=== PATIENT | female | born 1995 | race Caucasian/White ===

== ENCOUNTER 2016-03-19 18:45 | Emergency (ER) | payer OTHER ==
[2016-03-19] MEDS ORDERED: Albuterol HFA INHALER* 8 gm MDI INH ONE (19:08)
--- NOTE | 2016-03-19 19:15 | UC ---
Throat Pain/Nasal Bam HPI - HPI Summary HPI Summary: patient is 30 weeks , she has had a fever, although is currently a febrile. c/o of right ear paina nd sore throat and cough. - History of Current Complaint Chief Complaint: UCRespiratory Stated Complaint: throat,right ear complaint Time Seen by Provider: 03/19/16 18:53 Hx Obtained From: Patient Hx Last Menstrual Period: 10/06/14 ?: Yes Onset/Duration: Gradual Onset, Lasting Weeks Severity: Moderate Pain Intensity: 6 Pain Scale Used: 0-10 Numeric Cough: Productive Associated Signs & Symptoms: Positive: Dysphagia, Sinus Discomfort, Nasal Discharge, Fever - Epiglottits Risk Factors Epiglottis Risk Factors: Negative - Allergies/Home Medications Allergies/Adverse Reactions: Allergies Allergy/AdvReac Type Severity Reaction Status Date / Time Amoxicillin Allergy Intermediate Hives Verified 03/19/16 19:02 Penicillins Allergy Intermediate Hives Verified 03/19/16 19:02 Home Medications: Home Medications Acetaminophen [Acetaminophen Extra Stren] 1,000 mg PO Q4HR PRN 03/19/16 [ History Confirmed 03/19/16] Vitamin B Complex TAB* [Complex B-100*] 1 tab PO DAILY 03/19/16 [History Confirmed 03/19/16] PMH/Surg Hx/FS Hx/Imm Hx Previously Healthy: Yes Endocrine History Of: Denies: Diabetes, Thyroid Disease Cardiovascular History Of: Denies: Cardiac Disorders, Hypertension, Congestive Heart Failure Respiratory History Of: Reports: Asthma Denies: COPD GI/ History Of: Denies: Ulcer, Renal Disease Psychological History Of: Reports: Depression - hx of [facility] admission, Bipolar Disorder Denies: Anxiety, Schizophrenia - Surgical History Surgical History: None Surgery Procedure, Year, and Place: RT ARM CONTROL IMPLANT - Family History Known Family History: Positive: Hypertension - Social History Alcohol Use: None Substance Use Type: None Smoking Status (MU): Former Smoker Amount Used/How Often: 1 ppd Length of Time of Smoking/Using Tobacco: started at age 9 Have You Smoked in the Last Year: No When Did the Patient Quit Smoking/Using Tobacco: 2011 Household Exposure Type: Cigarettes - Immunization History Most Recent Influenza Vaccination: November 2014 Most Recent Tetanus Shot: 2011 Most Recent Pneumonia Vaccination: never Review of Systems Constitutional: Fever Skin: Negative ENT: Sore Throat Respiratory: Cough Cardiovascular: Negative Gastrointestinal: Negative Genitourinary: Negative Motor: Negative Neurovascular: Negative Musculoskeletal: Arthralgia Neurological: Negative Psychological: Negative All Other Systems Reviewed And Are Negative: Yes Physical Exam Triage Information Reviewed: Yes Appearance: No Pain Distress, Well-Nourished, Ill-Appearing Vital Signs: Initial Vital Signs Temp 98 F 03/19/16 18:55 Pulse 98 03/19/16 18:55 Resp 16 03/19/16 18:55 BP 109/81 03/19/16 18:55 Pulse Ox 98 03/19/16 18:55 Vital Signs Reviewed: Yes Eye Exam: Normal Eyes: Positive: Conjunctiva Clear ENT: Positive: Hearing grossly normal, Pharyngeal erythema, TMs normal Dental Exam: Normal Neck exam: Normal Neck: Positive: Supple, Nontender, No Lymphadenopathy Respiratory Exam: Normal Respiratory: Positive: Chest non-tender, No respiratory distress, No accessory muscle use, Wheezing, Inspiration Cardiovascular Exam: Normal Cardiovascular: Positive: RRR, No Murmur, Pulses Normal Abdominal Exam: Normal Abdomen Description: Positive: Nontender, No Organomegaly, Soft Bowel Sounds: Positive: Present Musculoskeletal Exam: Normal Musculoskeletal: Positive: Strength Intact, ROM Intact, No Edema Neurological Exam: Normal Neurological: Positive: Alert, Muscle Tone Normal Psychological Exam: Normal Skin Exam: Normal Throat Pain/Nasal Course/Dx - Course Course Of Treatment: hx obtained, exam performed, ears are clear, pearly Kong TM , throat slightly erythemic. does have some inspiratory wheezing. will give an albuterol refill as she states she is out. she is afebrile. will treat for viral pharyngitis - Differential Dx/Diagnosis Differential Diagnosis/HQI/PQRI: Influenza, Laryngitis, Otitis Media, Pharyngitis, Sinusitis, Tonsillitis, URI Provider Diagnoses: pharynigitis Discharge - Discharge Plan Condition: Stable Disposition: HOME Patient Education Materials: Pharyngitis (ED) Additional Instructions: Use the ventolin every 4 hours as needed for SOB or COUGH. is a tough time to be sick. I believe your illness is viral, your ears show no sign of infection. I recommend using tylenol 100 mg every 6 hours, do not exceed more than 4000 mg daily. do not use advil ( ibuprofen) while . Increase your clear fluid intake to stay hydrated. it is hard to stay hydrated while so increase your fluid intake is very important to help keep the sinuses moving. Get plenty of rest.
[2016-03-19 19:31] VITALS: BP 109/81
== END 2016-03-19 19:33 | disposition home or self-care (01) ==
LOC: UCCORT 18:45
DX: J02.9 Acute pharyngitis, unspecified (principal); O99.513 Diseases of the respiratory system complicating pregnancy, third trimester; Z87.891 Personal history of nicotine dependence; Z88.0 Allergy status to penicillin; Z88.1 Allergy status to other antibiotic agents; Z3A.30 30 weeks gestation of pregnancy
CPT/HCPCS: 99212; A9270-GY; G0463

== ENCOUNTER 2016-09-28 13:36 | Emergency (ER) | payer OTHER ==
[2016-09-28 14:07] VITALS: BP 104/69
[2016-09-28] MEDS ORDERED: Acetaminophen TAB* 325 MG PO ONE (14:12)
[2016-09-28] MEDS ORDERED: Dexamethasone IV* 4 MG/ML 1 ML (4 MG) IM ONE (14:13)
--- NOTE | 2016-09-28 14:17 | UC ---
Throat Pain/Nasal Bam HPI - HPI Summary HPI Summary: Congestion for a few days which has led to sore throat for three days. no cough and no fever. - History of Current Complaint Chief Complaint: UCRespiratory Stated Complaint: SORE THROAT CONGESTION Time Seen by Provider: 09/28/16 14:09 Hx Obtained From: Patient Hx Last Menstrual Period: prior to Onset/Duration: Gradual Onset, Lasting Days Severity: Severe Cough: None Associated Signs & Symptoms: Positive: Dysphagia, Nasal Discharge. Negative: FB Sensation, Drooling, Wheezing, Hoarseness, Sinus Discomfort, Fever, Vomiting , Rash - Allergies/Home Medications Allergies/Adverse Reactions: Allergies Allergy/AdvReac Type Severity Reaction Status Date / Time Amoxicillin Allergy Intermediate Anaphylatic Verified 09/28/16 13:59 Shock Penicillins Allergy Intermediate Dry Eyes Verified 09/28/16 13:59 Home Medications: Home Medications Acetaminophen [Tylenol] 325 mg PO Q4H PRN 09/28/16 [History Confirmed 09/28/16] Etonogestrel [Nexplanon] 68 mg IMPLANT ONCE 09/28/16 [History Confirmed 09/28/16 ] Aozyxuhsyfjaz-Bvjuanhgvw-Ejydy [Daytime/Nite Time Cold/Fl] 2 cap PO DAILY PRN [History Confirmed 09/28/16] Pseudoephedrine HCL ER TAB* [Sudafed 12 Hour*] 120 mg PO BID PRN 09/28/16 [ History Confirmed 09/28/16] PMH/Surg Hx/FS Hx/Imm Hx Previously Healthy: Yes - No DM. - Surgical History Surgical History: None Surgery Procedure, Year, and Place: RT ARM CONTROL IMPLANT - Family History Known Family History: Positive: None, Hypertension Family History: NON CONTRIBUTORY - Social History Lives: With Family Alcohol Use: None Substance Use Type: None Smoking Status (MU): Former Smoker Amount Used/How Often: 1 ppd Length of Time of Smoking/Using Tobacco: started at age 9 Have You Smoked in the Last Year: No When Did the Patient Quit Smoking/Using Tobacco: 2014 Household Exposure Type: Cigarettes - Immunization History Most Recent Influenza Vaccination: November 2014 Most Recent Tetanus Shot: 2011 Most Recent Pneumonia Vaccination: never Review of Systems ENT: Sore Throat All Other Systems Reviewed And Are Negative: Yes Physical Exam Triage Information Reviewed: Yes Appearance: Well-Appearing, No Pain Distress, Well-Nourished Vital Signs: Initial Vital Signs Temp 98.4 F 09/28/16 14:02 Pulse 84 09/28/16 14:02 Resp 16 09/28/16 14:02 BP 104/69 09/28/16 14:02 Pulse Ox 100 09/28/16 14:02 Vital Signs Reviewed: Yes Eye Exam: Normal ENT: Positive: Pharyngeal erythema - ailyn symmetric tonsillar hypertrophy/ enlargment without exudate., TMs normal. Negative: Nasal congestion, TM bulging , TM dull, TM red, Tonsillar swelling, Tonsillar exudate, Trismus Neck exam: Normal Neck: Positive: Tenderness @ - ailyn submandibular. Respiratory Exam: Normal Cardiovascular Exam: Normal Abdominal Exam: Normal Musculoskeletal Exam: Normal Neurological Exam: Normal Psychological Exam: Normal Skin Exam: Normal Throat Pain/Nasal Course/Dx - Course Assessment/Plan: Sore throat. Strep pending. she is non toxic. - Differential Dx/Diagnosis Differential Diagnosis/HQI/PQRI: Epiglottitis, Vipin's Angina, Mononucleosis, Otitis Media, Peritonsillar Abscess, Pharyngitis, Tonsillitis, URI Provider Diagnoses: URI. Discharge - Discharge Plan Condition: Good Disposition: HOME Prescriptions: Methylprednisolone [Medrol Dosepak 4 MG*] 4 mg PO .SEE ROVERTO INSTRUCTION #21 tab Naproxen [Naprosyn 500 mg] 500 mg PO BID PRN #20 tab PRN Reason: Pain Patient Education Materials: Upper Respiratory Infection (ED) Referrals: Sammi Brizuela, SUB ACUTE CARE NURSE [Primary Care Provider] -
== END 2016-09-28 15:04 | disposition home or self-care (01) ==
LOC: UCCORT 13:36
DX: J06.9 Acute upper respiratory infection, unspecified (principal); Z87.891 Personal history of nicotine dependence
CPT/HCPCS: 87651; 96372; 99212; A9270-GY; G0463; J1100

== ENCOUNTER → 2016-12-09 16:38 | Emergency (ER) | payer OTHER ==
[~2016-12-09 16:38] MED LIST: Famotidine IV* 10 MG/ML 2 ML (20 mg) IV SLOW PU ONE; Famotidine IV* 10 MG/ML 2 ML (20 mg) ONE; NS 0.9% 1000 ML* 1,000 ML IV ONE; Ondansetron INJ* 2 MG/ML VIAL IV ONE; Ondansetron INJ* 2 MG/ML VIAL ONE; diPHENhydraMINE IV* 50 MG in NS 0.9% 50 ML* 50 ML IVPB ONE; diPHENhydraMINE IV* 50 MG/ML 1 ml VIAL (BENADRYL) ONE; methylPREDNISolone 125 MG* 2 ML VIAL IV ONE; methylPREDNISolone 125 MG* 2 ML VIAL ONE
--- NOTE | 2016-12-09 17:02 | ED ---
Rishi Coleman Alfonso, scribed for Chikis Schaeffer MD on 12/09/16 at 1646 . Allergic Reaction/Systemic - HPI Summary HPI Summary: This patient is a 21 year old F presenting to [facility] with a chief complaint of an allergic reaction since approximately 1920. She was stung by bees on her right foot. Pt with develop of hives, flushing. Pt denies difficulty swallowing , breathing. No intraoral edema. Pt without pain. No h/o similar. Symptoms alleviated by nothing. Patient reports diffuse erythema and nausea. Pt denies taking any med [employer] Patients medication reviewed this visit. - History of Current Complaint Chief Complaint: EDAllergicReaction Time Seen by Provider: 12/09/16 16:45 Hx Obtained From: Patient Onset/Duration: Sudden Onset, Started minutes ago, Still Present Timing: Constant Location: Diffuse Character: Hives Alleviating Factor(s): Nothing Associated Signs And Symptoms: Positive: Other: - diffuse erythema and nausea. Patient denies SOB. - Allergies/Home Medications Allergies/Adverse Reactions: Allergies Allergy/AdvReac Type Severity Reaction Status Date / Time Amoxicillin Allergy Intermediate Anaphylatic Verified 09/28/16 13:59 Shock Penicillins Allergy Intermediate Dry Eyes Verified 09/28/16 13:59 PMH/Surg Hx/FS Hx/Imm Hx Previously Healthy: Yes Endocrine/Hematology History: Denies: Hx Diabetes, Hx Thyroid Disease Cardiovascular History: Denies: Hx Congestive Heart Failure, Hx Hypertension Respiratory History: Reports: Hx Asthma Denies: Hx Chronic Obstructive Pulmonary Disease (COPD) GI History: Denies: Hx Ulcer History: Denies: Hx Renal Disease Neurological History: Denies: Other Neuro Impairments/Disorders Psychiatric History: Reports: Hx Attention Deficit Hyperactivity Disorder, Hx Depression - hx of [facility] admission, Hx Inpatient Treatment, Hx Community Mental Health Tx, Hx Bipolar Disorder, Hx Suicide Attempt, Other Psychiatric Issues/ Disorders - borderline intellectual functioning, learning disability Denies: Hx Anxiety, Hx Eating Disorder, Hx Panic Disorder, Hx Post Traumatic Stress Disorder, Hx Schizophrenia, Hx of Violent Episodes Against Others, Hx Substance Abuse - Surgical History Surgery Procedure, Year, and Place: RT ARM CONTROL IMPLANT - Immunization History Date of Tetanus Vaccine: unknow Infectious Disease History: Denies: Hx Hepatitis, Hx Human Immunodeficiency Virus (HIV), History Other Infectious Disease - Family History Known Family History: Positive: Hypertension - Social History Alcohol Use: None Substance Use Type: Reports: None Smoking Status (MU): Former Smoker Amount Used/How Often: 1 ppd Length of Time of Smoking/Using Tobacco: started at age 9 Have You Smoked in the Last Year: No Review of Systems Positive: Other - allergic reaction Positive: Nausea Positive: Other - diffuse erythema All Other Systems Reviewed And Are Negative: Yes Physical Exam Triage Information Reviewed: Yes Vital Signs Reviewed: Yes Appearance: Positive: Well-Nourished, Pain Distress Skin: Positive: Other - Pt with flushing, hives difuse Head/Face: Positive: Normal Head/Face Inspection Eyes: Positive: Normal, EOMI ENT: Positive: Pharynx normal, TMs normal, Other - No intraoral edema Neck: Positive: Supple, Nontender Respiratory/Lung Sounds: Positive: Clear to Auscultation, Breath Sounds Present , Decreased Breath Sounds Cardiovascular: Positive: Normal, RRR, Pulses are Symmetrical in both Upper and Lower Extremities Abdomen Description: Positive: Nontender, No Organomegaly, Soft Bowel Sounds: Positive: Present Musculoskeletal: Positive: Normal, Strength/ROM Intact Neurological: Positive: Normal, Sensory/Motor Intact, Alert, Oriented to Person Place, Time Psychiatric: Positive: Normal - Yelena Coma Scale Best Eye Response: 4 - Spontaneous Best Motor Response: 6 - Obeys Commands Best Verbal Response: 4 - Confused Re-Evaluation - Re-Evaluation First Eval Re-Evaluation Time: 18:05 Change: Improved Comment: Patient is feeling much better. She now reports taking benadryl 50 mg [employer]. Will continue to monitor. Anticipate discharge home. d/w pt pepcid, pred , benadryl. will give epi pen. Pt in agreement with plan Allergic Reaction Course/Dx - Course Assessment/Plan: Pt with diffuse hives and erythema s/p bee sting. No intraoral edema, difficulty with breathing. Will give benadryl, pepcid, pred. tele. close reassessment - Diagnoses Provider Diagnoses: Allergic reaction Discharge - Discharge Plan Condition: Stable Disposition: HOME Prescriptions: Epinephrine [Epipen 2-Brenden] 0.3 mg IM ONCE PRN #1 inj PRN Reason: Hives Famotidine TAB* [Pepcid 20 MG TAB*] 20 mg PO BID #14 tab predniSONE TAB* [Deltasone TAB*] 50 mg PO DAILY #4 tab Patient Education Materials: General Allergic Reaction (ED) Referrals: Non Staff,Doctor [Primary Care Provider] - Additional Instructions: - Take prednisone exactly as prescribed until gone - starting today - Okay to take Benadryl (1-2 tablets) every 6 hours as needed. This medication may cause drowsiness - do NOT drive, operate machinery or drink alcohol while taking Benadryl -Take pepcid as prescribed - 2 times daily for 7 days -Avoid getting over heated (hot showers, hot tubs, exercise) for at least 48 hours - Try to avoid aspirin, NSAIDs (Motrin, Aleve, Naprosyn) for 2-3 days - Okay to apply cool compresses to the area of injury - Fill your epi pen - learn how to use it and keep with you at all times -Contact your doctor or return here with questions or concerns The documentation as recorded by the Rishi ribera Alfonso accurately reflects the service I personally performed and the decisions made by me, Chikis Schaeffer MD.
[2016-12-09 19:08] VITALS: BP 115/68
== END | disposition home or self-care (01) ==
LOC: ED 16:38
DX: T78.40XA Allergy, unspecified, initial encounter (principal); R11.0 Nausea; Z87.891 Personal history of nicotine dependence; L50.9 Urticaria, unspecified; X58.XXXA Exposure to other specified factors, initial encounter
CPT/HCPCS: 96374; 99284; J1200; J2405; J2930

== ENCOUNTER 2016-12-11 19:13 | Emergency (ER) | payer OTHER ==
[2016-12-11 19:21] VITALS: BP 115/80
--- NOTE | 2016-12-11 19:30 | UC ---
Cardiac HPI - HPI Summary HPI Summary: C/O chest tightness for a couple seconds. Better with a deep breath. - History of Current Complaint Chief Complaint: UCGeneralIllness Stated Complaint: SOB,CHEST PAIN Time Seen by Provider: 12/11/16 19:24 Hx Obtained From: Patient Hx Last Menstrual Period: prior to Onset/Duration: Sudden Onset Timing: Intermittent Episodes Lasting: - a few seconds. Initial Severity: Mild Current Severity: None Chest Pain Location: Upper Sternal Character: Tightness Alleviating Factor(s): Spontaneous Resolution - with deep breaths Associated Signs & Symptoms: Positive: SOB - with the chest pain. - Allergy/Home Medications Allergies/Adverse Reactions: Allergies Allergy/AdvReac Type Severity Reaction Status Date / Time Amoxicillin Allergy Intermediate Anaphylatic Verified 12/11/16 19:21 Shock Penicillins Allergy Intermediate Dry Eyes Verified 12/11/16 19:21 Bee Venom Allergy Difficulty Verified 12/11/16 19:21 Breathing PMH/Surg Hx/FS Hx/Imm Hx Respiratory History: Asthma - as a child - Surgical History Surgical History: None Surgery Procedure, Year, and Place: RT ARM CONTROL IMPLANT - Family History Known Family History: Positive: Cardiac Disease, Hypertension, Diabetes Family History: NON CONTRIBUTORY - Social History Occupation: Unemployed - stay at home mom Lives: With Family Alcohol Use: None Substance Use Type: None Smoking Status (MU): Former Smoker Amount Used/How Often: 1 ppd Length of Time of Smoking/Using Tobacco: started at age 9 Have You Smoked in the Last Year: No When Did the Patient Quit Smoking/Using Tobacco: 2014 Household Exposure Type: Cigarettes - Immunization History Most Recent Influenza Vaccination: November 2014 Most Recent Tetanus Shot: 2011 Most Recent Pneumonia Vaccination: never Review of Systems Respiratory: Shortness Of Breath Cardiovascular: Chest Pain Is Patient Immunocompromised?: No All Other Systems Reviewed And Are Negative: Yes Physical Exam Triage Information Reviewed: Yes Appearance: Well-Appearing, No Pain Distress, Well-Nourished Vital Signs: Initial Vital Signs Temp 99.0 F 12/11/16 19:17 Pulse 113 12/11/16 19:17 Resp 20 12/11/16 19:17 BP 115/80 12/11/16 19:17 Pulse Ox 100 12/11/16 19:17 Vital Signs Reviewed: Yes Eyes: Positive: Conjunctiva Clear ENT: Positive: Pharynx normal, TMs normal Neck exam: Normal Respiratory Exam: Normal Cardiovascular Exam: Normal Cardiovascular: Positive: Murmur:Sys:Grade _?_/ - 2/6 benign murmur Musculoskeletal Exam: Normal Neurological Exam: Normal Psychological Exam: Normal Skin Exam: Normal - Differential Diagnoses - Chest Pain Differential Diagnosis/HQI/PQRI: Chest Wall, GI Disease, Lower Respiratory Infection - Clinical Impression Provider Diagnoses: Chest pain, non-specific Discharge - Discharge Plan Condition: Stable Disposition: HOME Patient Education Materials: Noncardiac Chest Pain (ED)
== END 2016-12-11 19:43 | disposition home or self-care (01) ==
LOC: UCCORT 19:13
DX: R07.9 Chest pain, unspecified (principal); Z88.1 Allergy status to other antibiotic agents; Z88.0 Allergy status to penicillin; Z91.030 Bee allergy status; Z87.891 Personal history of nicotine dependence
CPT/HCPCS: 99211; G0463

== ENCOUNTER 2017-02-01 21:26 | Emergency (ER) | payer OTHER ==
[2017-02-01 21:38] VITALS: BP 112/76
--- NOTE | 2017-02-13 20:07 | UC ---
Cardiac HPI - HPI Summary HPI Summary: 21 year old female presents with right chest pain with dizzines - History of Current Complaint Chief Complaint: UCGU Stated Complaint: RIGHT SIDE CHEST PAIN Time Seen by Provider: 02/01/17 21:40 Hx Obtained From: Patient Hx Last Menstrual Period: Implanon Onset/Duration: Sudden Onset Timing: Constant Initial Severity: Severe Current Severity: Severe Pain Intensity: 0 Chest Pain Location: Right Anterior Aggravating Factor(s): Exertion - Allergy/Home Medications Allergies/Adverse Reactions: Allergies Allergy/AdvReac Type Severity Reaction Status Date / Time Amoxicillin Allergy Intermediate Anaphylatic Verified 02/01/17 21:33 Shock Penicillins Allergy Intermediate Dry Eyes Verified 02/01/17 21:33 Bee Venom Allergy Difficulty Verified 02/01/17 21:33 Breathing PMH/Surg Hx/FS Hx/Imm Hx - Surgical History Surgical History: None Surgery Procedure, Year, and Place: RT ARM CONTROL IMPLANT - Family History Known Family History: Positive: Cardiac Disease, Hypertension, Diabetes Family History: NON CONTRIBUTORY - Social History Alcohol Use: None Substance Use Type: None Smoking Status (MU): Former Smoker Amount Used/How Often: 1 ppd Length of Time of Smoking/Using Tobacco: started at age 9 Have You Smoked in the Last Year: No When Did the Patient Quit Smoking/Using Tobacco: 2015 Household Exposure Type: Cigarettes - Immunization History Most Recent Influenza Vaccination: no Most Recent Tetanus Shot: 2011 Most Recent Pneumonia Vaccination: never Review of Systems Constitutional: Negative Skin: Negative Eyes: Negative ENT: Negative Respiratory: Negative Cardiovascular: Chest Pain Gastrointestinal: Negative Genitourinary: Negative Motor: Negative Neurovascular: Negative Musculoskeletal: Negative Neurological: Negative Psychological: Negative All Other Systems Reviewed And Are Negative: Yes Physical Exam Triage Information Reviewed: Yes Appearance: Ill-Appearing Vital Signs: Initial Vital Signs Temp 36.6 C 02/01/17 21:34 Pulse 103 02/01/17 21:34 Resp 16 02/01/17 21:34 BP 112/76 02/01/17 21:34 Pulse Ox 100 02/01/17 21:34 Vital Signs Reviewed: Yes Eye Exam: Normal ENT Exam: Normal Dental Exam: Normal Neck exam: Normal Neck: Positive: 1 Respiratory Exam: Normal Cardiovascular Exam: Normal Abdominal Exam: Normal Musculoskeletal Exam: Normal Neurological Exam: Normal Psychological Exam: Normal Skin Exam: Normal - Clinical Impression Provider Diagnoses: right chest pain. dizziness Discharge - Discharge Plan Condition: Stable Disposition: OTHER Discharge Disposition Comment: patient suggested to go to the er Patient Education Materials: Chest Pain (ED) Referrals: Non Staff,Doctor [Primary Care Provider] - Additional Instructions: PATIENT SUGGESTED TO GO TO THE ER FOR CHEST PAIN
== END 2017-02-01 22:05 ==
LOC: UCCORT 21:26
DX: R07.89 Other chest pain (principal); R42 Dizziness and giddiness; Z88.0 Allergy status to penicillin; Z91.030 Bee allergy status; Z87.891 Personal history of nicotine dependence
CPT/HCPCS: 93005; 99212; G0463

== ENCOUNTER 2017-05-09 01:57 | Emergency (ER) | payer SELFPAY ==
[2017-05-09] MEDS ORDERED: Metoclopramide IV* 5 MG/ML 2 ML VIAL IV SLOW PU ONE (02:18)
[2017-05-09 02:45] LABS: ABS Basophils 0 10^3/ul (0-0.2); ABS Eosinophils 0.1 10^3/ul (0-0.6); ABS Lymphocytes 1.4 10^3/ul (1.0-4.8); ABS Monocytes 0.5 10^3/ul (0-0.8); ABS Neutrophils 8.5 10^3/ul (1.5-7.7); ABS Nucleated RBC 0 10^3/ul; Eosinophil % 0.6 % (0-6); Hematocrit 40 % (35-47); Hemoglobin 13.6 g/dl (12.0-16.0); Lymphocyte % 13.2 % (25-47); Mean Corpuscular HGB Conc 34 g/dl (31-36); Mean Corpuscular Hemoglobin 31 pg (27-31); Mean Corpuscular Volume 91 fL (80-97); Mean Platelet Volume 8 um3 (7.4-10.4); Nucleated Red Blood Cells % 0; Platelet Count 250 10^3/ul (150-450); Red Blood Count 4.41 10^6/ul (4.0-5.4); Red Cell Distribution Width 14 % (10.5-15); Urine Appearance Clear; Urine Blood Negative (Negative); Urine Color Straw; Urine Ketones Trace (Negative); Urine Protein Negative (Negative); Urine Specific Gravity 1.005 (1.010-1.030); Urine Urobilinogen Negative (Negative); White Blood Count 10.4 10^3/ul (3.5-10.8)
[2017-05-09 02:56] LABS: EGFR Non-African American 98.1 (>60)
--- NOTE | 2017-05-09 03:29 | ED ---
Julio Coleman Gabriel, scribed for Karolina Villalobos MD on 05/09/17 at 0224 . Adult Trauma - HPI Summary HPI Summary: This patient is a 21 year old F presenting to [facility] with a chief complaint of s/ p fall. Pt slipped on ice earlier today and landed on her buttocks. The patient rates the pain 3/10 in severity. Patient reports ABD pain, vomiting, syncope, nausea, and increased urinary frequency. Patient denies LOC, vaginal bleeding, head trauma, and ABD cramping. The syncope happened after the fall and she had three episodes of it, hx of syncope. Pt is 6 weeks and had her last US a week ago. . She has not felt well all day and hasnt eaten. Blood type is O+. - History of Current Complaint Chief Complaint: EDSyncope Stated Complaint: 6 WKS PREG/DIZZY Time Seen by Provider: 05/09/17 02:05 Hx Obtained From: Patient Hx Last Menstrual Period: Implanon Mechanism of Injury: Fall Ambulatory at the Scene: Yes Loss of Consciousness: no loss of consciousness Onset/Duration: Still Present Onset of Pain: Immediate Onset Severity: Mild Current Severity: Mild Pain Intensity: 3 Pain Scale Used: 0-10 Numeric Associated Signs & Symptoms: Positive: Negative - LOC, vaginal bleeding, head trauma, and ABD cramping., Other: - ABD pain, vomiting, syncope, nausea, and increased urinary frequency. - Allergy/Home Medications Allergies/Adverse Reactions: Allergies Allergy/AdvReac Type Severity Reaction Status Date / Time amoxicillin Allergy Anaphylatic Verified 05/09/17 03:14 Shock bee venom protein (honey bee) Allergy Difficulty Verified 05/09/17 03:14 Breathing Penicillins AdvReac Dry Eyes Verified 05/09/17 03:14 PMH/Surg Hx/FS Hx/Imm Hx Endocrine/Hematology History: Denies: Hx Diabetes, Hx Thyroid Disease Cardiovascular History: Denies: Hx Congestive Heart Failure, Hx Hypertension Respiratory History: Reports: Hx Asthma Denies: Hx Chronic Obstructive Pulmonary Disease (COPD) GI History: Denies: Hx Ulcer History: Denies: Hx Renal Disease Neurological History: Denies: Other Neuro Impairments/Disorders Psychiatric History: Reports: Hx Attention Deficit Hyperactivity Disorder, Hx Depression - hx of [facility] admission, Hx Inpatient Treatment, Hx Community Mental Health Tx, Hx Bipolar Disorder, Hx Suicide Attempt, Other Psychiatric Issues/ Disorders - borderline intellectual functioning, learning disability Denies: Hx Anxiety, Hx Eating Disorder, Hx Panic Disorder, Hx Post Traumatic Stress Disorder, Hx Schizophrenia, Hx of Violent Episodes Against Others, Hx Substance Abuse - Surgical History Surgery Procedure, Year, and Place: RT ARM CONTROL IMPLANT - Immunization History Date of Tetanus Vaccine: unknow Infectious Disease History: No Infectious Disease History: Denies: Hx Hepatitis, Hx Human Immunodeficiency Virus (HIV), History Other Infectious Disease, Traveled Outside the [place] in Last 30 Days - Family History Known Family History: Positive: Cardiac Disease, Hypertension, Diabetes Family History: NON CONTRIBUTORY - Social History Lives: With Family Alcohol Use: None Substance Use Type: Reports: None Smoking Status (MU): Former Smoker Amount Used/How Often: 1 ppd Length of Time of Smoking/Using Tobacco: started at age 9 Have You Smoked in the Last Year: No Review of Systems Constitutional: Negative - head trauma Gastrointestinal: Negative - abd cramping Positive: Abdominal Pain, Vomiting, Nausea Genitourinary: Negative - vaginal bleeding Positive: frequency - increased Neurological: Negative - LOC Positive: Syncope All Other Systems Reviewed And Are Negative: Yes Physical Exam - Summary Physical Exam Summary: VITAL SIGNS: Reviewed. GENERAL: Patient is a well-developed and nourished female who is lying comfortable in the stretcher. Patient is not in any acute respiratory distress. HEAD AND FACE: No signs of trauma. No ecchymosis, hematomas or skull depressions. No sinus tenderness. EYES: PERRLA, EOMI x 2, No injected conjunctiva, no nystagmus. EARS: Hearing grossly intact. Ear canals and tympanic membranes are within normal limits. MOUTH: Oropharynx within normal limits. NECK: Supple, trachea is midline, no adenopathy, no JVD, no carotid bruit, no c- spine tenderness, neck with full ROM. CHEST: Symmetric, no tenderness at palpation LUNGS: Clear to auscultation bilaterally. No wheezing or crackles. CVS: tachycardia, S1 and S2 present, no murmurs or gallops appreciated. ABDOMEN: Soft, non-tender. No signs of distention. No rebound no guarding, and no masses palpated. Bowel sounds are normal. EXTREMITIES: FROM in all major joints, no edema, no cyanosis or clubbing. NEURO: Alert and oriented x 3. No acute neurological deficits. Speech is normal and follows commands. SKIN: Dry and warm Triage Information Reviewed: Yes Vital Signs On Initial Exam: Initial Vitals Temp Pulse Resp BP Pulse Ox 98.4 F 124 18 121/79 97 05/09/17 01:59 05/09/17 01:59 05/09/17 01:59 05/09/17 01:59 05/09/17 01:59 Vital Signs Reviewed: Yes Diagnostics - Vital Signs Vital Signs Temp Pulse Resp BP Pulse Ox 05/09/17 01:59 98.4 F 124 18 121/79 97 - Laboratory Result Diagrams: 05/09/17 02:25 05/09/17 02:25 Lab Statement: Any lab studies that have been ordered have been reviewed, and results considered in the medical decision making process. - EKG 02:42 Cardiac Rate: NL EKG Rhythm: Sinus Rhythm - at 74 BPM EKG Interpretation: Normal axis. Normal interval. No ischemic changes Adult Trauma Course/Dx - Diagnoses Provider Diagnoses: Syncope, Vomiting Discharge - Discharge Plan Condition: Stable Disposition: HOME Prescriptions: Metoclopramide TAB* [Reglan TAB*] 10 mg PO Q6H PRN #20 tab PRN Reason: Nausea/Vomiting Patient Education Materials: Syncope (ED) Referrals: [facility] [place]Outside] - 5 Days Additional Instructions: RETURN TO EMERGENCY DEPARTMENT FOR ANY NEW OR WORSENING SYMPTOMS The documentation as recorded by the Julio ribera Gabriel accurately reflects the service I personally performed and the decisions made by Griselda saldana Abdul, MD.
[2017-05-09 03:44] VITALS: BP 100/44
--- NOTE | 2017-05-09 06:18 | ED ---
Julio Coleman Gabriel, scribed for Karolina Villalobos MD on 05/09/17 at 0331 . Progress - Progress Note Progress Note: This patient is a 21 year old F presenting to [facility] with a chief complaint of s/ p fall. Pt slipped on ice earlier today and landed on her buttocks. The patient rates the pain 3/10 in severity. Patient reports ABD pain, vomiting, syncope, nausea, and increased urinary frequency. Patient denies LOC, vaginal bleeding, head trauma, and ABD cramping. The syncope happened after the fall and she had three episodes of it, hx of syncope. Pt is 6 weeks and had her last US a week ago. . She has not felt well all day and hasnt eaten. Blood type is O+. An EKG reveals Normal axis. Normal interval. No ischemic changes at 74 BPM Test results with no significant abnormalities. UA and bloodwork obtained Dx syncope and vomiting Patient will be discharged with prescription for reglan and follow up from the referral center. The patient is agreeable with this plan. Course/Dx - Course Course Of Treatment: This patient is a 21 year old F presenting to [facility] with a chief complaint of s/p fall. Pt slipped on ice earlier today and landed on her buttocks. The patient rates the pain 3/10 in severity. Patient reports ABD pain , vomiting, syncope, nausea, and increased urinary frequency. Patient denies LOC , vaginal bleeding, head trauma, and ABD cramping. The syncope happened after the fall and she had three episodes of it, hx of syncope. Pt is 6 weeks and had her last US a week ago. . She has not felt well all day and hasnt eaten. Blood type is O+. An EKG reveals Normal axis. Normal interval. No ischemic changes at 74 BPM. Test results with no significant abnormalities. UA and bloodwork obtained. Dx syncope and vomiting. Patient will be discharged with prescription for reglan and follow up from the referral center. The patient is agreeable with this plan. - Diagnoses Provider Diagnoses: Syncope, Vomiting The documentation as recorded by the Julio ribera Gabriel accurately reflects the service I personally performed and the decisions made by me, Karolina Villalobos MD.
== END 2017-05-09 03:44 | disposition home or self-care (01) ==
LOC: ED 01:57
DX: R10.9 Unspecified abdominal pain (principal); R11.10 Vomiting, unspecified; R55 Syncope and collapse; Z3A.01 Less than 8 weeks gestation of pregnancy; Z87.891 Personal history of nicotine dependence
CPT/HCPCS: 36415; 80053; 81003; 83735; 84443; 85025; 93005; 96374; 96375; 99283; J2765

== ENCOUNTER 2018-03-20 12:54 | Emergency (ER) | payer SELFPAY ==
[2018-03-20 13:40] VITALS: BP 109/76
--- NOTE | 2018-03-20 13:48 | UC ---
UC General HPI - HPI Summary HPI Summary: PT IS C/O EAR PAIN, SORE THROAT AND COUGH X 2 DAYS. NO SOB, +FEVER(NO [place] [employer]), NO MESSER OR BODYACHES. - History of Current Complaint Chief Complaint: UCRespiratory Stated Complaint: CONGESTION EARS HEADACHE COUGH Time Seen by Provider: 03/20/18 13:41 Hx Obtained From: Patient Hx Last Menstrual Period: 01/28/18 Onset/Duration: Gradual Onset Timing: Constant Pain Intensity: 7 - Allergy/Home Medications Allergies/Adverse Reactions: Allergies Allergy/AdvReac Type Severity Reaction Status Date / Time amoxicillin Allergy Anaphylatic Verified 03/20/18 13:37 Shock bee venom protein (honey bee) Allergy Difficulty Verified 03/20/18 13:37 Breathing Penicillins AdvReac Dry Eyes Verified 03/20/18 13:37 Home Medications: Home Medications Acetaminophen [Acetaminophen Extra Strength] 1,000 mg PO Q6H PRN 03/20/18 [ History Confirmed 03/20/18] PMH/Surg Hx/FS Hx/Imm Hx Previously Healthy: Yes - Surgical History Surgical History: None Surgery Procedure, Year, and Place: RT ARM CONTROL IMPLANT - Family History Known Family History: Positive: Cardiac Disease, Hypertension, Diabetes Family History: NON CONTRIBUTORY - Social History Occupation: Employed Full-time Lives: With Family Alcohol Use: None Substance Use Type: None Smoking Status (MU): Former Smoker Amount Used/How Often: 1 ppd Length of Time of Smoking/Using Tobacco: 1 PPD x 3 Years Have You Smoked in the Last Year: No When Did the Patient Quit Smoking/Using Tobacco: ~2012 Household Exposure Type: Cigarettes - Immunization History Most Recent Influenza Vaccination: no Most Recent Tetanus Shot: 2011 Most Recent Pneumonia Vaccination: never Vaccination Up to Date: Yes Review of Systems All Other Systems Reviewed And Are Negative: Yes Skin: Positive: Negative Eyes: Positive: Negative Cardiovascular: Positive: Negative Gastrointestinal: Positive: Negative Genitourinary: Positive: Negative Motor: Positive: Negative Neurovascular: Positive: Negative Musculoskeletal: Positive: Negative Neurological: Positive: Negative Psychological: Positive: Negative Is Patient Immunocompromised?: No Physical Exam Triage Information Reviewed: Yes Appearance: Well-Appearing Vital Signs: Initial Vital Signs Temp 97.6 F 03/20/18 13:35 Pulse 102 03/20/18 13:35 Resp 16 03/20/18 13:35 BP 109/76 03/20/18 13:35 Pulse Ox 98 03/20/18 13:35 Vital Signs Reviewed: Yes Eyes: Positive: Conjunctiva Clear ENT: Positive: Pharyngeal erythema - SLIGHT, Nasal congestion, Nasal drainage - CLEAR, TMs normal, Uvula midline. Negative: Trismus, Muffled voice, Hoarse voice, Sinus tenderness Neck: Positive: Supple, Nontender, No Lymphadenopathy. Negative: Nuchal Rigidity Respiratory: Positive: Lungs clear, Normal breath sounds, No respiratory distress Cardiovascular: Positive: RRR, No Murmur. Negative: Tachycardia Abdomen Description: Positive: Nontender, No Organomegaly, Soft Bowel Sounds: Positive: Present Musculoskeletal: Positive: ROM Intact Neurological: Positive: Alert Psychological: Positive: Age Appropriate Behavior Skin Exam: Normal Skin: Negative: Rashes Diagnostics - Laboratory Diagnostic Studies Completed/Ordered: HCG AND RAPID STREP ARE NEGATIVE. Course/Dx - Course Course Of Treatment: NO CONCERN FOR INFLUENZA - Differential Dx - Multi-Symptom Differential Diagnoses: Other - URI, VIRAL SYNDROM, STREP THROAT - Diagnoses Provider Diagnosis: URI (upper respiratory infection) Discharge - Sign-Out/Discharge Documenting (check all that apply): Patient Departure All imaging exams completed and their final reports reviewed: No Studies - Discharge Plan Condition: Stable Disposition: HOME Patient Education Materials: Upper Respiratory Infection (DC) Forms: *Work Release Referrals: Dana Mendoza [Primary Care Provider] - 7 Days - Billing Disposition and Condition Condition: STABLE Disposition: Home
== END 2018-03-20 14:15 | disposition home or self-care (01) ==
LOC: UCCORT 12:54
DX: J06.9 Acute upper respiratory infection, unspecified (principal); Z88.0 Allergy status to penicillin; Z87.891 Personal history of nicotine dependence
CPT/HCPCS: 84702; 87651; 99211; G0463

== ENCOUNTER 2018-11-06 22:17 | Emergency (ER) | payer MEDICAID, OTHER ==
[2018-11-06 22:24] VITALS: BP 123/88
== END 2018-11-06 23:33 | disposition left against medical advice (07) ==
LOC: ED 22:17
DX: R07.9 Chest pain, unspecified (principal); Z53.21 Procedure and treatment not carried out due to patient leaving prior to being seen by health care provider
CPT/HCPCS: 93005; 99282

== ENCOUNTER 2018-11-12 16:15 | Emergency (ER) | payer OTHER ==
[2018-11-12 17:24] LABS: ABS Eosinophils 0.2 10^3/ul (0-0.6); ABS Lymphocytes 2.1 10^3/ul (1.0-4.8); ABS Monocytes 0.4 10^3/ul (0-0.8); ABS Neutrophils 3.5 10^3/ul (1.5-7.7); Eosinophil % 2.5 %; Hematocrit 41 % (35-47); Hemoglobin 14.3 g/dL (12.0-16.0); Lymphocyte % 33.5 %; Mean Corpuscular HGB Conc 35 g/dL (31-36); Mean Corpuscular Hemoglobin 32 pg (27-31); Mean Corpuscular Volume 93 fL (80-97); Mean Platelet Volume 8.2 fL (7.4-10.4); Nucleated Red Blood Cells % 0.1; Platelet Count 247 10^3/uL (150-450); Red Blood Count 4.42 10^6 /uL (3.70-4.87); Red Cell Distribution Width 13 % (10-15); White Blood Count 6.2 10^3/uL (3.5-10.8)
[2018-11-12 17:38] LABS: ALT 12 U/L (7-52); AST 16 U/L (13-39); Albumin 4.3 g/dL (3.2-5.2); Albumin/Globulin Ratio 1.5 (1-3); Alkaline Phosphatase 60 U/L (34-104); Anion Gap 7 mmol/L (2-11); BUN/Creatinine Ratio 15.1 (8-20); Blood Urea Nitrogen 13 mg/dL (6-24); CO2 Carbon Dioxide 25 mmol/L (22-32); Calcium 9.1 mg/dL (8.6-10.3); Chloride 106 mmol/L (101-111); EGFR African American 98.1 (>60); EGFR Non-African American 81.1 (>60); Globulin 2.8 g/dL (2-4); Glucose 76 mg/dL (70-100); Potassium 3.9 mmol/L (3.5-5.0); Sodium 138 mmol/L (135-145); Total Protein 7.1 g/dL (6.4-8.9)
[2018-11-12 17:45] LABS: HCG Pregnancy < 0.60 mIU/mL
[2018-11-12] MEDS ORDERED: oxyCODONE TAB* 5 MG TAB PO ONE (19:07)
--- NOTE | 2018-11-12 19:09 | ED ---
Abdominal Pain/Female - HPI Summary HPI Summary: Patient complains of lower abdominal intermittent cramping 1 week, intermittent spotting noticed when wiping after urination 2 days, positive home test today. Also complains of hard stool with daily BM. Abdominal pain described as lower bilateral abdomen, intermittent, worse 09/12. Denies fever, cough, sore throat, CP, SOB, N/V/D, change in urine. LMP 10/11/18. . No prior history of miscarriage. Patient is having unprotected sex. Denies medical history. Abdominal surgical history is none. - History of Current Complaint Chief Complaint: EDVaginalBleeding Stated Complaint: , BLEEDING,CRAMPING, LIGHT HEADED PER PT Time Seen by Provider: 11/12/18 17:28 Hx Obtained From: Patient - 1 hour Hx Last Menstrual Period: 01/28/18 Onset/Duration: Gradual Onset Timing: Intermittent Episode Lasting Severity Initially: Moderate Severity Currently: Moderate Pain Intensity: 7 Pain Scale Used: 0-10 Numeric Location: Discrete At: RLQ, Discrete At: LLQ, Suprapubic Radiates: No Character: Cramping Aggravating Factor(s): Nothing Alleviating Factor(s): Nothing Associated Signs and Symptoms: Positive: Negative Allergies/Adverse Reactions: Allergies Allergy/AdvReac Type Severity Reaction Status Date / Time amoxicillin Allergy Anaphylatic Verified 03/20/18 13:37 Shock bee venom protein (honey bee) Allergy Difficulty Verified 03/20/18 13:37 Breathing Penicillins AdvReac Dry Eyes Verified 03/20/18 13:37 PMH/Surg Hx/FS Hx/Imm Hx Endocrine/Hematology History: Denies: Hx Diabetes, Hx Thyroid Disease Cardiovascular History: Denies: Hx Congestive Heart Failure, Hx Hypertension Respiratory History: Reports: Hx Asthma Denies: Hx Chronic Obstructive Pulmonary Disease (COPD) GI History: Denies: Hx Ulcer History: Denies: Hx Renal Disease Sensory History: Denies: Hx Legally Blind Opthamlomology History: Denies: Hx Eye Prosthesis EENT History: Denies: Hx Deafness Neurological History: Denies: Hx Dementia, Other Neuro Impairments/Disorders Psychiatric History: Reports: Hx Attention Deficit Hyperactivity Disorder, Hx Depression - hx of [facility] admission, Hx Inpatient Treatment, Hx Community Mental Health Tx, Hx Bipolar Disorder, Hx Suicide Attempt, Other Psychiatric Issues/ Disorders - borderline intellectual functioning, learning disability Denies: Hx Anxiety, Hx Eating Disorder, Hx Panic Disorder, Hx Post Traumatic Stress Disorder, Hx Schizophrenia, Hx of Violent Episodes Against Others, Hx Substance Abuse - Surgical History Surgery Procedure, Year, and Place: RT ARM CONTROL IMPLANT - Immunization History Date of Tetanus Vaccine: unknow Infectious Disease History: No Infectious Disease History: Denies: Hx Hepatitis, Hx Human Immunodeficiency Virus (HIV), History Other Infectious Disease, Traveled Outside the [place] in Last 30 Days - Family History Known Family History: Positive: Cardiac Disease, Hypertension, Diabetes Family History: NON CONTRIBUTORY - Social History Alcohol Use: None Substance Use Type: Reports: None Smoking Status (MU): Former Smoker Amount Used/How Often: 1 ppd Length of Time of Smoking/Using Tobacco: 1 PPD x 3 Years Have You Smoked in the Last Year: No Review of Systems Constitutional: Negative Eyes: Negative ENT: Negative Cardiovascular: Negative Respiratory: Negative Positive: Abdominal Pain Genitourinary: Negative Musculoskeletal: Negative Skin: Negative Neurological: Negative Psychological: Normal All Other Systems Reviewed And Are Negative: Yes Physical Exam - Summary Physical Exam Summary: Tender to palpation right upper quadrant, right lower quadrant and suprapubically. Triage Information Reviewed: Yes Vital Signs On Initial Exam: Initial Vitals Temp Pulse Resp BP Pulse Ox 98.1 F 81 18 116/74 98 11/12/18 16:23 11/12/18 16:23 11/12/18 16:23 11/12/18 16:23 11/12/18 16:23 Vital Signs Reviewed: Yes Appearance: Positive: Well-Appearing Skin: Positive: Warm Head/Face: Positive: Normal Head/Face Inspection Eyes: Positive: Normal Neck: Positive: Supple Respiratory/Lung Sounds: Positive: Clear to Auscultation Cardiovascular: Positive: Normal Abdomen Description: Positive: Other: Musculoskeletal: Positive: Normal Neurological: Positive: Normal Psychiatric: Positive: Normal AVPU Assessment: Alert - Yelena Coma Scale Best Eye Response: 4 - Spontaneous Best Motor Response: 6 - Obeys Commands Best Verbal Response: 5 - Oriented Coma Scale Total: 15 Diagnostics - Vital Signs Vital Signs Temp Pulse Resp BP Pulse Ox 11/12/18 16:23 98.1 F 81 18 116/74 98 - Laboratory Lab Results: Lab Results 11/12/18 11/12/18 11/12/18 Range/Units 16:57 16:57 16:57 WBC 6.2 (3.5-10.8) 10^3/uL RBC 4.42 (3.70-4.87) 10^6 /uL Hgb 14.3 (12.0-16.0) g/dL Hct 41 (35-47) % MCV 93 (80-97) fL MCH 32 H (27-31) pg MCHC 35 (31-36) g/dL RDW 13 (10-15) % Plt Count 247 (150-450) 10^3/uL MPV 8.2 (7.4-10.4) fL Neut % (Auto) 57.2 % Lymph % (Auto) 33.5 % Pleasants % (Auto) 6.0 % Eos % (Auto) 2.5 % Baso % (Auto) 0.8 % Absolute Neuts (auto) 3.5 (1.5-7.7) 10^3/ul Absolute Lymphs (auto) 2.1 (1.0-4.8) 10^3/ul Absolute Monos (auto) 0.4 (0-0.8) 10^3/ul Absolute Eos (auto) 0.2 (0-0.6) 10^3/ul Absolute Basos (auto) 0.0 (0-0.2) 10^3/ul Absolute Nucleated RBC 0.0 10^3/ul Nucleated RBC % 0.1 Sodium 138 (135-145) mmol/L Potassium 3.9 (3.5-5.0) mmol/L Chloride 106 (101-111) mmol/L Carbon Dioxide 25 (22-32) mmol/L Anion Gap 7 (2-11) mmol/L BUN 13 (6-24) mg/dL Creatinine 0.86 (0.51-0.95) mg/dL Est GFR ( Amer) 98.1 (>60) Est GFR (Non-Af Amer) 81.1 (>60) BUN/Creatinine Ratio 15.1 (8-20) Glucose 76 (70-100) mg/dL Calcium 9.1 (8.6-10.3) mg/dL Total Bilirubin 0.90 (0.2-1.0) mg/dL AST 16 (13-39) U/L ALT 12 (7-52) U/L Alkaline Phosphatase 60 (34-104) U/L Total Protein 7.1 (6.4-8.9) g/dL Albumin 4.3 (3.2-5.2) g/dL Globulin 2.8 (2-4) g/dL Albumin/Globulin Ratio 1.5 (1-3) Beta HCG, Quant < 0.60 mIU/mL Blood Type O Positive Antibody Screen Negative Result Diagrams: 11/12/18 16:57 11/12/18 16:57 Lab Statement: Any lab studies that have been ordered have been reviewed, and results considered in the medical decision making process. Abdominal Pain Fem Course/Dx - Course Course Of Treatment: Patient complains of lower abdominal intermittent cramping 1 week, intermittent spotting noticed when wiping after urination 2 days, positive home test today. Also complains of hard stool with daily BM. Abdominal pain described as lower bilateral abdomen, intermittent, worse . Denies fever, cough, sore throat, CP, SOB, N/V/D, change in urine. LMP 10/11. . No prior history of miscarriage. Patient is having unprotected sex. Denies medical history. Abdominal surgical history is none. Vital signs within normal limits. Labs unremarkable. Transvaginal ultrasound positive for left ovarian cyst. - Diagnoses Provider Diagnoses: Hemorrhagic cyst of left ovary Discharge ED - Sign-Out/Discharge Documenting (check all that apply): Patient Departure Patient Received Moderate/Deep Sedation with Procedure: No - Discharge Plan Condition: Stable Disposition: HOME Prescriptions: Oxycodone HCl 5 mg PO TID 2 Days #6 tablet MDD 3 tabs Patient Education Materials: Ovarian Cyst (ED) Referrals: Dana Mendoza [Primary Care Provider] - Additional Instructions: Alternate ibuprofen 600 mg with Tylenol 650 mg every 3 hours for pain as needed. Follow up with your [facility] for further evaluation. Return to the ED for any new or worsening symptoms. - Billing Disposition and Condition Condition: STABLE Disposition: Home
[2018-11-12 19:27] VITALS: BP 112/66
== END 2018-11-12 19:26 | disposition home or self-care (01) ==
LOC: ED 16:15
DX: N83.202 Unspecified ovarian cyst, left side (principal); Z87.891 Personal history of nicotine dependence; J45.909 Unspecified asthma, uncomplicated; F32.9 Major depressive disorder, single episode, unspecified; F90.9 Attention-deficit hyperactivity disorder, unspecified type; Z88.0 Allergy status to penicillin
CPT/HCPCS: 36415; 76830; 80053; 84702; 85025; 86850; 86900; 86901; 99282

== ENCOUNTER 2019-02-04 10:46 | Emergency (ER) | payer OTHER ==
[2019-02-04 11:12] VITALS: BP 105/64
--- NOTE | 2019-02-04 11:25 | UC ---
Complaint Female HPI - HPI Summary HPI Summary: 23-year-old female who is complaining of abdominal pain. She states that she has had been positive tests at home. She states she went to the emergency room last evening and her test was negative. She then went home, did another home test which was positive, and had intercourse and states this morning she started having some cramping with bleeding. When I talked with her further about the bleeding she states it's only brownish discharge. She continues to have some mild cramping. - History Of Current Complaint Chief Complaint: UCGU Stated Complaint: STOMACHE PAIN/PERSONAL Time Seen by Provider: 02/04/19 10:48 Hx Obtained From: Patient Hx Last Menstrual Period: 01/05/19 ?: Yes - positive test here Onset/Duration: Gradual Onset Timing: Intermittent Severity Initially: Mild Severity Currently: Mild Pain Intensity: 4 Character: Cramping Aggravating Factor(s): Nothing Alleviating Factor(s): Nothing Associated Signs And Symptoms: Positive: Negative - Allergies/Home Medications Allergies/Adverse Reactions: Allergies Allergy/AdvReac Type Severity Reaction Status Date / Time amoxicillin Allergy Anaphylatic Verified 02/04/19 11:08 Shock azithromycin Allergy Hives Verified 02/04/19 11:08 bee venom protein (honey bee) Allergy Difficulty Verified 02/04/19 11:08 Breathing Penicillins AdvReac Dry Eyes Verified 02/04/19 11:08 Home Medications: Home Medications Vitamin TAB* 1 tab PO DAILY 02/04/19 [History Confirmed 02/04/19] PMH/Surg Hx/FS Hx/Imm Hx Previously Healthy: Yes - Surgical History Surgical History: None Surgery Procedure, Year, and Place: RT ARM CONTROL IMPLANT - Family History Known Family History: Positive: Cardiac Disease, Hypertension, Diabetes Family History: NON CONTRIBUTORY - Social History Alcohol Use: None Substance Use Type: Marijuana Substance Use Comment - Amount & Last Used: "When I get a headache" Smoking Status (MU): Former Smoker Amount Used/How Often: 1 ppd Length of Time of Smoking/Using Tobacco: 1 PPD x 3 Years Have You Smoked in the Last Year: No When Did the Patient Quit Smoking/Using Tobacco: ~2012 Household Exposure Type: Cigarettes - Immunization History Most Recent Influenza Vaccination: no Most Recent Tetanus Shot: 2011 Most Recent Pneumonia Vaccination: never Vaccination Up to Date: Yes Review of Systems All Other Systems Reviewed And Are Negative: Yes Genitourinary: Positive: Other - Patient has been experiencing some pelvic cramping evening and today following intercourse last evening. She states she has had some brownish vaginal discharge today. She has taken 7 tests at home which have all been positive. Is Patient Immunocompromised?: No Physical Exam Triage Information Reviewed: Yes Appearance: Well-Appearing, No Pain Distress, Well-Nourished Vital Signs: Initial Vital Signs Temp 98.6 F 02/04/19 11:03 Pulse 88 02/04/19 11:03 Resp 16 02/04/19 11:03 BP 105/64 02/04/19 11:03 Pulse Ox 100 02/04/19 11:03 Vital Signs Reviewed: Yes Eyes: Positive: Conjunctiva Clear ENT: Positive: Hearing grossly normal, Pharynx normal, TMs normal, Uvula midline Neck: Positive: Supple, Nontender, No Lymphadenopathy Respiratory: Positive: Lungs clear, Normal breath sounds, No respiratory distress, No accessory muscle use Cardiovascular: Positive: RRR, No Murmur, Pulses Normal, Brisk Capillary Refill Abdomen Description: Positive: No Organomegaly, Soft, Other: - Patient states she has mild abdominal tenderness "all over" however she has no rigidity, rebound or guarding.. Negative: CVA Tenderness (R), CVA Tenderness (L), Distended, Guarding, Hepatomegaly, McBurney's Point Tenderness, Splenomegaly Bowel Sounds: Positive: Present Musculoskeletal Exam: Normal Neurological Exam: Normal Psychological Exam: Normal Skin Exam: Normal Complaint Female Dx - Course Course Of Treatment: Transvaginal sonogram:FINDINGS: There is fluid within the endometrial canal. There is a small cyst in the cervical region of the uterus which is unchanged from the prior study and therefore suggestive of a nabothian cyst. No intrauterine gestational sac is seen. The uterus is normal in size, shape and echogenicity. The uterus measured 9.7 cm 5.0 cm 6.5 cm. The endometrial echo measured 1.2 cm in thickness. The right ovary measured 2.7 cm 5.0 cm 2.2 cm. The left ovary measured 1.1 cm 4.4 cm 2.5 cm. There is vascular flow within both ovaries. There is a complex cyst present within the right ovary measuring 2.0 x 1.9 x 1.7 cm. There is a small amount of free intraperitoneal fluid in the cul-de-sac. IMPRESSION: 1. NO INTRAUTERINE GESTATIONAL SAC IS SEEN. THEREFORE DIFFERENTIAL DIAGNOSIS INCLUDES EARLY INTRAUTERINE AND RECENT SPONTANEOUS MISCARRIAGE. THE POSSIBILITY OF AN ECTOPIC CANNOT BE EXCLUDED. RECOMMEND FOLLOW-UP WITH QUANTITATIVE BETA HCG. 2. SMALL AMOUNT OF FREE INTRAPERITONEAL FLUID AND COMPLEX RIGHT OVARIAN CYST POSSIBLY REPRESENTING A CORPUS LUTEUM CYST. Quantitative hCG drawn The patient has been comfortable here with no complaints. She states she has an appointment with Dr. Olmos, [facility] physician, tomorrow at 1:00 PM. - Differential Dx/Diagnosis Provider Diagnosis: Miscarriage, threatened, early Discharge ED - Sign-Out/Discharge Documenting (check all that apply): Patient Departure All imaging exams completed and their final reports reviewed: Yes - Discharge Plan Condition: Fair Disposition: HOME Patient Education Materials: Threatened Miscarriage (ED) Referrals: Dana Mendoza [Primary Care Provider] - Additional Instructions: Keep your 1:[address] Olmos tomorrow. No intercourse until cleared by Dr. Olmos. If you have increased cramping and bleeding go to the emergency room for further treatment. - Billing Disposition and Condition Condition: FAIR Disposition: Home
== END 2019-02-04 12:47 | disposition home or self-care (01) ==
LOC: UCCORT 10:46
DX: O20.0 Threatened abortion (principal); N83.291 Other ovarian cyst, right side; R18.8 Other ascites; Z88.0 Allergy status to penicillin; Z88.1 Allergy status to other antibiotic agents; Z91.030 Bee allergy status; Z87.891 Personal history of nicotine dependence
CPT/HCPCS: 36415; 76830; 84702; 99211; G0463

== ENCOUNTER 2019-04-19 12:39 | Emergency (ER) | payer OTHER ==
[2019-04-19 13:47] VITALS: BP 105/61
--- NOTE | 2019-04-19 14:06 | UC ---
Complaint Female HPI - HPI Summary HPI Summary: 23-year-old female who is 15 weeks presents with one-week history of urinary urgency. States she is also been having some cramping, low back pain, and vaginal spotting. Patient reports that she was having some vaginal bleeding early in her and had an ultrasound that showed a placenta previa. She has not had any vaginal bleeding since she was 6 weeks . She has not felt any movement yet. Next OB appointment is scheduled for . . Denies fever, chills, nausea, vomiting, vaginal discharge, vaginal itching, or dyspareunia. - History Of Current Complaint Chief Complaint: UCGU Stated Complaint: URINATION ISSUES Time Seen by Provider: 04/19/19 13:50 Hx Obtained From: Patient Hx Last Menstrual Period: 01/05/19 ?: Yes - 15 weeks Pain Intensity: 6 - Allergies/Home Medications Allergies/Adverse Reactions: Allergies Allergy/AdvReac Type Severity Reaction Status Date / Time amoxicillin Allergy Anaphylatic Verified 02/04/19 11:08 Shock azithromycin Allergy Hives Verified 02/04/19 11:08 bee venom protein (honey bee) Allergy Difficulty Verified 02/04/19 11:08 Breathing Penicillins AdvReac Dry Eyes Verified 02/04/19 11:08 PMH/Surg Hx/FS Hx/Imm Hx Previously Healthy: Yes - Denies significant PMH - Surgical History Surgical History: None Surgery Procedure, Year, and Place: RT ARM CONTROL IMPLANT - Family History Known Family History: Positive: Cardiac Disease, Hypertension, Diabetes Family History: NON CONTRIBUTORY - Social History Occupation: Employed Full-time Lives: With Family Alcohol Use: None Substance Use Type: None Substance Use Comment - Amount & Last Used: "When I get a headache" Smoking Status (MU): Former Smoker Amount Used/How Often: 1 ppd Length of Time of Smoking/Using Tobacco: 1 PPD x 3 Years Have You Smoked in the Last Year: No When Did the Patient Quit Smoking/Using Tobacco: ~2012 Household Exposure Type: Cigarettes - Immunization History Most Recent Influenza Vaccination: no Most Recent Tetanus Shot: 2011 Most Recent Pneumonia Vaccination: never Vaccination Up to Date: Yes Review of Systems All Other Systems Reviewed And Are Negative: Yes Constitutional: Negative: Fever, Chills Respiratory: Positive: Negative Cardiovascular: Positive: Negative Gastrointestinal: Negative: Vomiting, Nausea Genitourinary: Positive: Frequency, Urgency, Abnormal Bleeding, Other - See HPI. Negative: Dysuria, Hematuria, Vaginal/Penile Discharge Musculoskeletal: Positive: Negative Neurological/Mental Status: Positive: Negative Is Patient Immunocompromised?: No Physical Exam - Summary Physical Exam Summary: GENERAL APPEARANCE: Well developed, well nourished, alert and cooperative, and appears to be in no acute distress. CARDIAC: Normal S1 and S2. No S3, S4 or murmurs. Rhythm is regular. There is no peripheral edema, cyanosis or pallor. Extremities are warm and well perfused. Capillary refill is less than 2 seconds. Peripheral pulses intact. LUNGS: Clear to auscultation without rales, rhonchi, wheezing or diminished breath sounds. ABDOMEN: Positive bowel sounds. Soft, nondistended, nontender. No guarding or rebound. No masses or hepatosplenomegally. No CVA tenderness. MUSKULOSKELETAL: ROM intact to all extremities. No joint erythema or tenderness. Normal muscular development. Normal gait. SKIN: Skin normal color, texture and turgor with no lesions or eruptions. Triage Information Reviewed: Yes Vital Signs: Initial Vital Signs Temp 98.7 F 04/19/19 13:41 Pulse 75 04/19/19 13:41 Resp 18 04/19/19 13:41 BP 105/61 04/19/19 13:41 Pulse Ox 100 04/19/19 13:41 Vital Signs Reviewed: Yes Complaint Female Dx - Course Course Of Treatment: 23-year-old female who is 15 weeks presents with one-week history of urinary urgency. States she is also been having some cramping, low back pain, and vaginal spotting. Patient reports that she was having some vaginal bleeding early in her and had an ultrasound that showed a placenta previa. She has not had any vaginal bleeding since she was 6 weeks . She has not felt any movement yet. Next OB appointment is scheduled for . . Denies fever, chills, nausea, vomiting, vaginal discharge, vaginal itching, or dyspareunia. Afebrile. Vital signs stable. Asians exam was overall unremarkable. [id number] urinalysis was negative. Urine culture is pending. Discussed with the patient that with her history of placenta previa and new vaginal bleeding would recommend that she have an ultrasound performed for evaluation of the placenta previa however I do not have ultrasound available to me at this time therefore I'm recommending that she be evaluated in the emergency room. Patient is agreeable to this and is electing to transport via private vehicle with her mother driving. - Differential Dx/Diagnosis Differential Diagnosis/HQI/PQRI: Pelvic Inflammatory Disease, Sexually Transmitted Disease, Urinary Tract Infection, Other - Vulvovaginitis Provider Diagnosis: Urinary urgency, Vaginal bleeding in , History of placenta previa Discharge ED - Sign-Out/Discharge Documenting (check all that apply): Patient Departure All imaging exams completed and their final reports reviewed: No Studies - Discharge Plan Condition: Stable Disposition: HOME-RECOMMEND TO ED Patient Education Materials: Urinary Urgency and Frequency (DC) Referrals: Dana Mendoza [Primary Care Provider] - 3 Days (If no improvement.) Additional Instructions: The urine test performed in the clinic today showed no evidence of an infection. We will send the urine for culture to see if any bacteria grow out and will treat if there is an indication. With your history of a placenta previa (blood behind the placenta) and a return of the vaginal bleeding I am recommending that you go to the emergency room for further evaluation as I am unable to obtain an ultrasound to appropriately evaluate for this condition. Please go directly to the emergency room from here. - Billing Disposition and Condition Condition: STABLE Disposition: Home-Recommend to ED
== END 2019-04-19 14:26 | disposition home health service (06) ==
LOC: UCCORT 12:39
DX: O99.89 Other specified diseases and conditions complicating pregnancy, childbirth and the puerperium (principal); O20.9 Hemorrhage in early pregnancy, unspecified; Z3A.15 15 weeks gestation of pregnancy; R39.15 Urgency of urination; Z87.59 Personal history of other complications of pregnancy, childbirth and the puerperium; Z91.030 Bee allergy status; Z88.0 Allergy status to penicillin; Z88.1 Allergy status to other antibiotic agents; Z87.891 Personal history of nicotine dependence
CPT/HCPCS: 81003; 87086; 99212; G0463

== ENCOUNTER 2019-05-16 14:26 | Emergency (ER) | payer MEDICAID ==
[2019-05-16 16:41] VITALS: BP 101/61
[2019-05-16 17:22] LABS: Influenza A Molecular Negative (Negative); Influenza B Molecular Negative (Negative)
--- NOTE | 2019-05-16 17:28 | UC ---
FLU HPI - HPI Summary HPI Summary: 23-year-old female who is 18 weeks presents with 2 day history of sore throat and headache. Occasional nonproductive cough. States today she started with some fatigue and body aches. Reports son has strep throat. Denies fever, chills, nasal congestion, ear pain, dysphagia, chest pain, shortness of breath, abdominal pain, nausea, vomiting, or diarrhea. - History of Current Complaint Chief Complaint: UCRespiratory Stated Complaint: ST/COUGH Time Seen by Provider: 05/16/19 16:58 Hx Obtained From: Patient Hx Last Menstrual Period: 01/05/19 Pain Intensity: 7 - Allergy/Home Medications Allergies/Adverse Reactions: Allergies Allergy/AdvReac Type Severity Reaction Status Date / Time amoxicillin Allergy Anaphylatic Verified 05/16/19 16:42 Shock azithromycin Allergy Hives Verified 05/16/19 16:42 bee venom protein (honey bee) Allergy Difficulty Verified 05/16/19 16:42 Breathing Penicillins AdvReac Dry Eyes Verified 05/16/19 16:42 Home Medications: Home Medications Vitamin TAB* 1 tab PO DAILY 02/04/19 [History Confirmed 05/16/19] Acetaminophen [Acetaminophen Extra Strength] 1,000 mg PO Q6H PRN 05/16/19 [ History Confirmed 05/16/19] Fluticasone NASAL SPRAY 50MCG* [Flonase NASAL SPRAY 50MCG*] 1 spray BOTH NARES BID 05/16/19 [History Confirmed 05/16/19] Ondansetron TAB* [Zofran 4 MG Tab*] 4 mg PO Q6H PRN 05/16/19 [History Confirmed 05/16/19] PMH/Surg Hx/FS Hx/Imm Hx Previously Healthy: Yes - Denies significant PMH - Surgical History Surgical History: None Surgery Procedure, Year, and Place: RT ARM CONTROL IMPLANT - Family History Known Family History: Positive: Cardiac Disease, Hypertension, Diabetes - Social History Occupation: Employed Full-time Lives: With Family Alcohol Use: None Substance Use Type: None Substance Use Comment - Amount & Last Used: "When I get a headache" Smoking Status (MU): Former Smoker Amount Used/How Often: 1 ppd Length of Time of Smoking/Using Tobacco: 1 PPD x 3 Years Have You Smoked in the Last Year: No When Did the Patient Quit Smoking/Using Tobacco: ~2012 Household Exposure Type: Cigarettes - Immunization History Most Recent Influenza Vaccination: no Most Recent Tetanus Shot: 2011 Most Recent Pneumonia Vaccination: never Vaccination Up to Date: Yes Review of Systems All Other Systems Reviewed And Are Negative: Yes Constitutional: Positive: Fatigue. Negative: Fever, Chills Skin: Negative: Rash Eyes: Negative: Drainage, Eye Redness ENT: Positive: Sore Throat. Negative: Ear Ache, Nasal Discharge, Sinus Congestion, Sinus Pain/Tenderness Respiratory: Positive: Cough. Negative: Shortness Of Breath Cardiovascular: Negative: Palpitations, Chest Pain Gastrointestinal: Negative: Abdominal Pain, Vomiting, Diarrhea, Nausea Genitourinary: Positive: Negative Musculoskeletal: Positive: Negative Neurological/Mental Status: Positive: Headache Is Patient Immunocompromised?: No Physical Exam - Summary Physical Exam Summary: GENERAL APPEARANCE: Well developed, well nourished, alert and cooperative, and appears to be in no acute distress. EYES: Conjunctiva clear. No drainage. EARS: External auditory canals and tympanic membranes clear, hearing grossly intact. NOSE: No nasal discharge. THROAT: Pharyngeal erythema without tonsilar inflammation, swelling, exudate, or lesions. Uvula midline. NECK: Neck supple, non-tender without lymphadenopathy. CARDIAC: Normal S1 and S2. No S3, S4 or murmurs. Rhythm is regular. There is no peripheral edema, cyanosis or pallor. Extremities are warm and well perfused. Capillary refill is less than 2 seconds. Peripheral pulses intact. LUNGS: Clear to auscultation without rales, rhonchi, wheezing or diminished breath sounds. Dry nonproductive cough. ABDOMEN: Positive bowel sounds. Soft, nondistended, nontender. No guarding or rebound. No masses or hepatosplenomegally. MUSKULOSKELETAL: ROM intact to all extremities. No joint erythema or tenderness. Normal muscular development. Normal gait. SKIN: Skin normal color, texture and turgor with no lesions or eruptions. Triage Information Reviewed: Yes Vital Signs: Initial Vital Signs Temp 98.7 F 05/16/19 16:36 Pulse 94 05/16/19 16:36 Resp 20 05/16/19 16:36 BP 101/61 05/16/19 16:36 Pulse Ox 98 05/16/19 16:36 Vital Signs Reviewed: Yes Flu Course/Dx - Course Course Of Treatment: 23-year-old female who is 18 weeks presents with 2 day history of sore throat and headache. Occasional nonproductive cough. States today she started with some fatigue and body aches. Reports son has strep throat. Denies fever, chills, nasal congestion, ear pain, dysphagia, chest pain, shortness of breath, abdominal pain, nausea, vomiting, or diarrhea. Afebrile. Vital signs stable. Patient had no nasal congestion, normal TMs, pharyngeal erythema without tonsillar swelling or exudate, no cervical lymphadenopathy, clear bilateral breath sounds, dry nonproductive cough, and otherwise unremarkable exam. Rapid flu test and rapid strep test were negative. Reviewed results with the patient. Recommending symptomatic treatment for viral pharyngitis. She is to follow-up with her primary care provider in 3-4 days if symptoms persist. Anticipatory guidance warning symptoms reviewed with the patient. Verbalizes understanding and agrees with plan of care. - Differential Dx/Diagnosis Differential Diagnosis/HQI/PQRI: Bronchitis, Influenza, Pneumonia, Upper Respiratory Infection Provider Diagnosis: Acute viral pharyngitis Discharge ED - Sign-Out/Discharge Documenting (check all that apply): Patient Departure All imaging exams completed and their final reports reviewed: No Studies - Discharge Plan Condition: Stable Disposition: HOME Patient Education Materials: Pharyngitis (ED) Referrals: Jaelyn Vargas PA [Primary Care Provider] - 3 Days Additional Instructions: Your rapid strep test and rapid flu test in the clinic today were negative. Your symptoms are likely from a viral infection. Viral infections do not respond to antibiotics and are limited to the treatment of symptoms. Viral infections typically run their course in 7-10 days. Get plenty of rest. Drink plenty of fluids to avoid dehydration. Use salt water gargles several times a day. Take over the counter acetaminophen (Tylenol) according to directions as needed for pain or fever. You may also use Chloraseptic spray or Cepacol lonzenges according to directions which contain a numbing medication and can provide some temporary relief from your sore throat. Return here or follow up with your primary care provider in 7 days if symptoms persist. Seek immediate medical attention in the emergency room if you have fever greater than 100.5 F despite taking acetaminophen or ibuprofen, are unable to swallow or develop drooling, are unable to open your mouth fully, are unable to eat or drink, have pain that is not relieved with over the counter pain medication, or have any difficulty breathing. - Billing Disposition and Condition Condition: STABLE Disposition: Home - Attestation Statements Provider Attestation: This patient was not seen by me. I was available for consult. Chart reviewed. CECIL
== END 2019-05-16 18:37 | disposition home or self-care (01) ==
LOC: UCCORT 14:26
DX: O99.512 Diseases of the respiratory system complicating pregnancy, second trimester (principal); O99.89 Other specified diseases and conditions complicating pregnancy, childbirth and the puerperium; J02.9 Acute pharyngitis, unspecified; R51 Headache; Z88.0 Allergy status to penicillin; Z88.1 Allergy status to other antibiotic agents; Z91.030 Bee allergy status; Z3A.18 18 weeks gestation of pregnancy; Z87.891 Personal history of nicotine dependence
CPT/HCPCS: 87651; 99211; G0463

== ENCOUNTER 2022-09-22 21:44 | Inpatient (IN) ==
[2022-09-22] MEDS ORDERED: Buffered Lidocaine 1% SYRIN 1 ml INTRADERM ONE (22:58)
[2022-09-22] MEDS ORDERED: Promethazine INJ(RESTRICTED) 25 MG/ML 1 ml VIAL IV PRN (22:58)
[2022-09-22] MEDS ORDERED: Lactated Ringers 1000 ml BAG 1,000 ML IV ONE (22:58)
[2022-09-22] MEDS ORDERED: Lactated Ringers 1000 ml BAG 1,000 ML IV SCH (23:00)
[2022-09-22] MEDS ORDERED: Ondansetron ODT 4 mg TAB 4 MG TAB SL PRN (23:11)
[2022-09-23 00:09] LABS: Urine Benzodiazepine Screen None Detected (None Detect); Urine Opiates Screen None Detected (None Detect)
[2022-09-23 00:26] LABS: ABS Eosinophils 0.1 10^3/uL (0.0-0.5); ABS Lymphocytes 1.9 10^3/uL (1.0-4.8); ABS Monocytes 0.6 10^3/uL (0.0-0.9); ABS Neutrophils 8.4 10^3/uL (1.5-7.6); Eosinophil % 0.8 %; Hematocrit 31.1 % (35-45); Hemoglobin 10.6 g/dL (11.5-14.3); Lymphocyte % 16.9 %; Mean Corpuscular Hemoglobin 26.1 pg (27-33); Mean Corpuscular Hgb Conc 33.9 g/dL (31-36); Mean Corpuscular Volume 77.1 fL (80-97); Mean Platelet Volume 8.8 fL (7.5-11.2); Platelet Count 234 10^3/uL (150-450); Red Blood Count 4.04 10^6/uL (3.63-4.92)
[2022-09-23] MEDS ORDERED: Calcium Carb (TUMS) 500 mg CHEW TAB PO ONE (01:03)
[2022-09-23] MEDS ORDERED: OBEPIDURAL (200 ML) 200 ML EPIDURAL ONE (02:52)
[2022-09-23] MEDS ORDERED: Lidocaine 2% w/ EPI 1:200,000 MPF 20 ML SDV VIAL ONE (02:53)
[2022-09-23] MEDS ORDERED: Sodium Citrate/Citric Acid LIQ 15 ML UDC PO PRN (03:57)
[2022-09-23] MEDS ORDERED: Phenylephrine 40 mcg/mL 10mL (400mcg) SYRINGE IV PUSH PRN ×2 (03:57)
[2022-09-23] MEDS ORDERED: Lactated Ringers 1000 ml BAG 1,000 ML IV ONE (03:57)
[2022-09-23] MEDS ORDERED: OBEPIDURAL (200 ML) 200 ML EPIDURAL SCH (04:00)
[2022-09-23] MEDS ORDERED: Lactated Ringers 1000 ml BAG 1,000 ML IV SCH ×2 (04:00→06:00)
[2022-09-23] MEDS ORDERED: Dibucaine 1% OINT 28.35 GM TUBE PR PRN (05:33)
[2022-09-23] MEDS ORDERED: Witch Hazel PAD JAR TOPICAL PRN (05:33)
[2022-09-23] MEDS ORDERED: Varicella Virus Vaccine Live 0.5 ML VIAL SUBCUT ONE (16:04)
[2022-09-24 07:22] LABS: ABS Eosinophils 0.3 10^3/uL (0.0-0.5); ABS Monocytes 0.5 10^3/uL (0.0-0.9); ABS Neutrophils 5.5 10^3/uL (1.5-7.6); ABS Nucleated RBC 0.01 10^3/ul; Eosinophil % 3.1 %; Hematocrit 26.5 % (35-45); Hemoglobin 8.8 g/dL (11.5-14.3); Lymphocyte % 23.6 %; Mean Corpuscular Hemoglobin 26.3 pg (27-33); Mean Corpuscular Hgb Conc 33.2 g/dL (31-36); Mean Corpuscular Volume 79.3 fL (80-97); Mean Platelet Volume 8.4 fL (7.5-11.2); Nucleated Red Blood Cells % 0.1 /100 WBC (0.0-0.4); Platelet Count 204 10^3/uL (150-450); Red Blood Count 3.34 10^6/uL (3.63-4.92); Red Cell Distribution Width 16.6 % (12-17); White Blood Count 8.3 10^3/uL (3.8-11.8)
[2022-09-24 07:56] VITALS: BP 90/55
[2022-09-24] MEDS ORDERED: Varicella Virus Vaccine Live 0.5 ML VIAL SUBCUT ONE (09:00)
== END 2022-09-24 11:42 | disposition home or self-care (01) | DRG 560 ==
LOC: MCHOBOUT 21:44 → MCHOB 22:43
PROVIDERS: ADMIT Registered Nurse; ATTEND Registered Nurse